=== PATIENT | male | born 1975 | race Hispanic/Latino ===

== ENCOUNTER 2017-10-08 07:36 | Day surgery (SDC) | payer OTHER ==
[~2017-10-08 07:36] MED LIST: ANCEF/STERILE WATER 2 GM/20 ML IV NR
[2017-10-08] MEDS ORDERED: DIPRIVAN 10 MG/ML IV ONE (09:54)
[2017-10-08] MEDS ORDERED: XYLOCAINE CARDIAC IV ONE (09:55)
[2017-10-08] MEDS ORDERED: DILAUDID ONE (09:55)
[2017-10-08] MEDS ORDERED: ZOFRAN ONE (09:55)
[2017-10-08] MEDS ORDERED: DECADRON ONE (09:55)
[2017-10-08] MEDS ORDERED: NACL 0.9% 1000 ML 1,000 ML IV SCH (10:03)
[2017-10-08] MEDS ORDERED: NACL 0.9% 1000 ML 1,000 ML ONE (11:04)
[2017-10-08] MEDS ORDERED: TYLENOL PO PRN (11:14)
--- NOTE | 2017-10-08 11:39 | Short Stay Summary ---
Short Stay Documentation Date of service: 10/08/17 - History H&P: obtained from office - Allergies and Medications Current Medications: Allergies No Known Allergies Allergy (Verified 10/02/17 11:45) Home Medications Medication Instructions Recorded Confirmed Last Taken Type Ketorolac [Toradol] 10 mg PO Q4HR PRN 10/02/17 10/02/17 10/02/17 History Oxycodone HCl/Acetaminophen 1 tab PO PRN PRN 10/02/17 10/02/17 10/02/17 History [Percocet 7.5/325 mg] Active Medications Acetaminophen (Tylenol) 650 mg PO ONCE PRN PRN Reason: Pain Stop: 10/08/17 13:00 Last Admin: 10/08/17 11:20 Dose: 650 mg Cefazolin Sodium (Ancef/Sterile Water 2 Gm/20 Ml) 2 gm IV PREOP NR Stop: 10/08/17 23:59 Sodium Chloride (Nacl 0.9% 1000 Ml) 1,000 mls @ 75 mls/hr IV DIRECT SIMI Last Admin: 10/08/17 10:12 Dose: 75 mls/hr - Brief post op/procedure progress note Date of procedure: 10/08/17 Pre-op diagnosis: RIGHT renal up 9mm, right LP large stone Procedure: rt renal up eswl Anesthesia: GETA Findings: goog vis frag Surgeon: JAVIER MARTINO Estimated blood loss: minimal Pathology: none Condition: stable - Hospital course Hospital course: [email or web address] - Disposition Condition at discharge: Good Short Stay Discharge Plan Activity: advance as tolerated Diet: advance as tolerated Follow up with: JAVIER MARTINO MD [Staff Physician] - 7 Days
--- NOTE | 2017-10-08 11:50 | Post Operative Note ---
Date of procedure: 10/08/17 Pre-op diagnosis: right renal 9mm, disregard short stay op note (error) this is correct Post-op diagnosis: same Findings: good vis Procedure: right renal eswl Anesthesia: JUAN Surgeon: JAVIER MARTINO Estimated blood loss: minimal Pathology: none Condition: stable Disposition: PACU
[2017-10-08] MEDS ORDERED: NORCO 7.5/325 PO SCH (12:08)
[2017-10-08] MEDS ORDERED: NORCO 10/325 PO SCH (13:00)
--- NOTE | 2017-10-08 13:27 | Anesthesia Consultation ---
Anesthesia Consult and Med Hx Date of service: 10/08/17 - Airway Anesthetic Teeth Evaluation: Good, Poor ROM Head & Neck: Adequate Mental/Hyoid Distance: Adequate Mallampati Class: Class II Intubation Access Assessment: Probably Good - Pulmonary Exam CTA: Yes - Cardiac Exam Cardiac Exam: RRR - Pre-Operative Health Status ASA Pre-Surgery Classification: ASA1 Proposed Anesthetic Plan: General - Pulmonary Hx Smoking: Yes (SOCIAL SMOKER (1-2 PER DAY)) Hx Sleep Apnea: No (JARROD PRE SCREEN LOW RISK) - Cardiovascular System Hx Hypertension: No - Central Nervous System Hx Back Pain: Yes (DUE TO STONE) - Other Systems Hx Cancer: No
--- NOTE | 2017-10-08 18:02 | XRay Report ---
FINAL REPORT PROCEDURE: XR ABDOMEN 1V AP TECHNIQUE: Single AP view of the abdomen HISTORY: KIDNEY STONE COMPARISON: No prior studies are available for comparison. FINDINGS: There is a 7 millimeter right renal calculus present. Bowel gas pattern is nonobstructive. No focal osseous abnormality is seen. IMPRESSION: Nonobstructive bowel gas pattern. 7 millimeter right renal calculus
[2017-10-08 20:31] VITALS: BP 108/70
--- NOTE | 2017-10-18 22:44 | Operative Report ---
PREOPERATIVE DIAGNOSIS: Right renal 9 mm stone. POSTOPERATIVE DIAGNOSIS: Right renal 9 mm stone. FINDINGS: Good visualization. PROCEDURE: Right renal ESWL. ANESTHESIA: General. SURGEON: Asim Dixon M.D. ESTIMATED BLOOD LOSS: Minimal. PATHOLOGY: None. CONDITION: Stable. DISPOSITION: PACU. CLINICAL INDICATIONS: The patient counseled by his primary urologist, antibiotics, SCDs. Questions were answered by me and reviewed. DESCRIPTION OF PROCEDURE: The patient was transferred to OR suite in supine position, anesthesia, biplanar fluoroscopy was used to target the stone with an F2. There was good visualization. A total of 2500 shocks were delivered at a maximum of 5.0 kilovolts with intermittent repositioning done as necessary. At the end of the procedure, there was decreased density of the stone. The patient awakened and transferred to PACU in good and stable condition. JOB# [id number] ATS/NTS
== END 2017-10-08 13:23 | disposition home or self-care (01) ==
LOC: OR 07:36
PROVIDERS: ATTEND Urology
DX: N13.2 Hydronephrosis with renal and ureteral calculous obstruction (principal); I10 Essential (primary) hypertension; F17.210 Nicotine dependence, cigarettes, uncomplicated
CPT/HCPCS: 50590; 74018; J0690; J1100; J1170; J2001; J2405; J2704; J7030